=== PATIENT | female | born 1990 ===

== ENCOUNTER 2017-02-03 19:04 | Emergency (ER) | payer SELFPAY ==
[2017-02-03] MEDS ORDERED: Clindamycin 150 MG CAP ONE (19:53)
[2017-02-03] MEDS ORDERED: HYDROcodone/Acetaminophen 5/325 mg Tablet ONE (19:53)
[2017-02-03] MEDS ORDERED: Dexamethasone 4 mg/ml Vial ONE (19:53)
== END 2017-02-03 19:59 | disposition home or self-care (01) ==
LOC: ERS 19:04
DX: L02.01 Cutaneous abscess of face (principal); K02.9 Dental caries, unspecified; K21.9 Gastro-esophageal reflux disease without esophagitis; Z79.899 Other long term (current) drug therapy
CPT/HCPCS: 99283; J1100